=== PATIENT | male | born 1985 | race Caucasian/White ===

== ENCOUNTER 2017-03-30 16:36 | Emergency (ER) | payer OTHER ==
[~2017-03-30] VITALS: Ht 175.3 cm; Wt 66.0 kg
[~2017-03-30 16:36] MED LIST: ALBUAER2 INH; CLR10 PO; MONT1TAB3 PO; SYMIN160 INH
[2017-03-30 16:44] VITALS: BP 144/84; PULSE 108; TEMP 36.8; O2SAT 100; Ht 175.3 cm; Wt 66.0 kg
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
== END 2017-03-30 18:14 | disposition home or self-care (01) ==
LOC: EDBD 16:36 → C.EDD 16:37
DX: S30.810A Abrasion of lower back and pelvis, initial encounter (principal); V43.62XA Car passenger injured in collision with other type car in traffic accident, initial encounter; M54.6 Pain in thoracic spine; M54.5 Low back pain; F17.200 Nicotine dependence, unspecified, uncomplicated; Z79.899 Other long term (current) drug therapy; Z88.0 Allergy status to penicillin; Z88.3 Allergy status to other anti-infective agents